=== PATIENT | female | born 1955 | race Caucasian/White ===

== ENCOUNTER 2019-06-29 05:55 | Day surgery (SDC) | payer OTHER ==
[~2019-06-29 05:55] MED LIST: LIRICA PO; NEURONTIN600 MG
== END 2019-06-29 10:30 | disposition home or self-care (01) ==
LOC: CIR.AMB 05:55
DX: M19.042 Primary osteoarthritis, left hand (principal)

== ENCOUNTER 2019-10-07 12:39 | Emergency (ER) | payer OTHER ==
[~2019-10-07] VITALS: Ht 152.4 cm; Wt 67.6 kg
[2019-10-07] MEDS ORDERED: LYRICA200 MG (12:55)
[2019-10-07] MEDS ORDERED: ZITHROMAX500 MG PO (16:30)
[2019-10-07] MEDS ORDERED: AIRBORNE EFFER1 EACH PO (16:30)
== END 2019-10-07 16:52 | disposition home or self-care (01) ==
LOC: ER 12:39
DX: J06.9 Acute upper respiratory infection, unspecified (principal); R07.89 Other chest pain; R06.02 Shortness of breath; Z03.818 Encounter for observation for suspected exposure to other biological agents ruled out

== ENCOUNTER 2019-11-18 07:46 | Outpatient (CLI) | payer OTHER ==
[~2019-11-18 07:46] MED LIST changes: +AIRBORNE EFFER1 EACH PO; +LYRICA200 MG; +ZITHROMAX500 MG PO
== END 2019-11-18 07:52 | disposition home or self-care (01) ==
LOC: RAD 07:46
PROVIDERS: ATTEND Internal Medicine Gastroenterology
DX: R51 Headache (principal); R06.02 Shortness of breath

== ENCOUNTER 2021-03-29 10:00 | Outpatient (CLI) | payer OTHER | END 2021-03-29 10:15 | disposition home or self-care (01) | LOC: PPH VACUNA 10:00 | PROVIDERS: ATTEND Emergency Medicine Pediatric Emergency Medicine | DX: Z23 Encounter for immunization (principal) ==

== ENCOUNTER 2022-01-31 09:20 | Outpatient (CLI) | payer OTHER | END 2022-01-31 09:59 | disposition home or self-care (01) | LOC: RAD 09:20 | PROVIDERS: ATTEND Orthopaedic Surgery | DX: M25.561 Pain in right knee (principal); M25.562 Pain in left knee; M25.551 Pain in right hip; M25.552 Pain in left hip ==

== ENCOUNTER 2022-02-28 08:16 | Outpatient (CLI) | payer OTHER | END 2022-02-28 08:21 | disposition home or self-care (01) | LOC: PPH VACUNA 08:16 | PROVIDERS: ATTEND Emergency Medicine Pediatric Emergency Medicine | DX: Z23 Encounter for immunization (principal) ==

== ENCOUNTER 2022-05-02 09:59 | Emergency (ER) | payer OTHER ==
[~2022-05-02] VITALS: Ht 152.4 cm; Wt 63.5 kg
[2022-05-02] MEDS ORDERED: VITAMIN D310 MCG/1 M PO (10:16)
== END 2022-05-02 13:32 | disposition home or self-care (01) ==
LOC: ER 09:59
DX: M79.662 Pain in left lower leg (principal); Z88.2 Allergy status to sulfonamides

== ENCOUNTER 2022-10-28 06:37 | Outpatient (CLI) | payer OTHER ==
[~2022-10-28 06:37] MED LIST changes: +VITAMIN D310 MCG/1 M PO
== END 2022-10-28 06:51 | disposition home or self-care (01) ==
LOC: LAB 06:37
PROVIDERS: ATTEND Orthopaedic Surgery
DX: D64.89 Other specified anemias (principal); E88.89 Other specified metabolic disorders; D68.8 Other specified coagulation defects; N39.0 Urinary tract infection, site not specified; A49.02 Methicillin resistant Staphylococcus aureus infection, unspecified site; Z76.89 Persons encountering health services in other specified circumstances; I49.9 Cardiac arrhythmia, unspecified; I10 Essential (primary) hypertension

== ENCOUNTER 2022-11-28 09:34 | Emergency (ER) | payer OTHER ==
[~2022-11-28] VITALS: Ht 152.4 cm; Wt 63.0 kg
== END 2022-11-28 15:29 | disposition home or self-care (01) ==
LOC: ER 09:34
DX: K57.30 Diverticulosis of large intestine without perforation or abscess without bleeding (principal); K57.32 Diverticulitis of large intestine without perforation or abscess without bleeding; Z88.2 Allergy status to sulfonamides

== ENCOUNTER 2023-07-24 07:04 | Day surgery (SDC) | payer OTHER ==
[2023-07-14 10:37] LABS: HEMATOCRIT 41.5 % (36.0-45.00); HEMOGLOBIN 13.7 g/dL (12.0-15.00); MEAN CELL VOLUME 88.6 fL (80.00-100.00); MEAN CORPUSCULAR HEMOGLOBIN 29.3 pg (27.00-32.0); MEAN CORPUSCULAR HGB CONC 33.1 g/dl (32.0-36.0); PLATELET COUNT 267 K/uL (150-450); RED BLOOD COUNT 4.68 M/uL (4.00-6.00); RED CELL DISTRIBUTION WIDTH 14.1 % (11.5-14.5)
[2023-07-14 10:41] LABS: PH,URINE 6.5 (5.0-8.0); URINE APPEARANCE Clear; URINE BILIRRUBIN Negative (NEGATIVE); URINE BLOOD Negative; URINE COLOR Yellow; URINE GLUCOSE Negative (NEGATIVE); URINE LEUKOCYTE Trace; URINE NITRATE Negative; URINE PROTEIN Negative (NEGATIVE); URINE UROBILINOGEN 0.2 E.U./dl
[2023-07-14 10:46] LABS: URINE BACTERIA 13.8 uL (0.0-1933); URINE EPITHELIAL CELLS 3.2 uL (0.0-38.8); URINE RBC 17.3 uL (0.0-20.8); URINE WBC 10.5 uL (0.0-23.2)
[2023-07-14 11:05] LABS: INR 0.99; PARTIAL THROMBOPLASTIN TIME 34.9 SECONDS (22.0-34.0); PROTHROMBIN TIME 10.4 SECONDS (9.0-11.5)
[2023-07-14 11:10] LABS: ALBUMIN 3.8 gm/dL (3.4-5.0); BILIRUBIN TOTAL 0.46 mg/dL (0.3-1.2); CALCIUM 9.5 mg/dL (8.5-10.1); CREATININE SERUM 0.62 mg/dL (0.55-1.02); GFR 95.16; GLOBULINA 3.2 G/DL (2.4-3.5); POTASSIUM 3.92 mEq/L (3.5-5.1)
[2023-07-24] MEDS ORDERED: BUPIVACAINE HCL/PF 0.5% 5MG/ML VIAL IJ ONE (09:00)
[2023-07-24] MEDS ORDERED: CEFAZOLIN SODIUM 1,000 MG VIAL IV ONE (09:00)
[2023-07-24] MEDS ORDERED: KETOROLAC TROMETHAMINE 30 MG VIAL IV ONE (09:00)
[2023-07-24] MEDS ORDERED: LIDOCAINE HCL/EPINEPHRINE 20 ML VIAL IJ ONE ×2 (09:00→09:56)
[2023-07-24] MEDS ORDERED: KETOROLAC TROMETHAMINE 30 MG VIAL IJ ONE (09:00)
[2023-07-24] MEDS ORDERED: CEFAZOLIN SODIUM 1,000 MG VIAL ONE (09:39)
[2023-07-24] MEDS ORDERED: KETOROLAC TROMETHAMINE 30 MG VIAL ONE (09:55)
[2023-07-24] MEDS ORDERED: BUPIVACAINE HCL/PF 0.5% 30ML ML ONE (09:56)
[2023-07-24] MEDS ORDERED: SUGAMMADEX SODIUM 200 MG/2 ML VIAL IV ONE ×2 (11:20→11:30)
== END 2023-07-24 15:20 | disposition home or self-care (01) ==
LOC: CIR.AMB 07:04
PROVIDERS: ATTEND Orthopaedic Surgery
DX: M75.121 Complete rotator cuff tear or rupture of right shoulder, not specified as traumatic (principal); M75.21 Bicipital tendinitis, right shoulder; M24.111 Other articular cartilage disorders, right shoulder; Z88.2 Allergy status to sulfonamides; Z88.1 Allergy status to other antibiotic agents; Z20.822 Contact with and (suspected) exposure to COVID-19

== ENCOUNTER 2023-09-02 07:56 | Emergency (ER) | payer OTHER ==
[~2023-09-02] VITALS: Ht 152.4 cm; Wt 59.9 kg
[2023-09-02] MEDS ORDERED: TRIAMCINOLONE ACETONIDE 40 MG/ML VIAL IM ONE (09:30)
[2023-09-02] MEDS ORDERED: ORPHENADRINE CITRATE 30 MG/ML AMPUL IM ONE (09:30)
[2023-09-02] MEDS ORDERED: FAMOtidine 20 MG TABLET PO ONE (09:30)
[2023-09-02] MEDS ORDERED: TIZANIDINE HCL2 M1 PO (09:31)
[2023-09-02] MEDS ORDERED: TYLENOL ARTHRI650 MG PO (09:31)
[2023-09-02] MEDS ORDERED: FAMOTIDINE/PF 20 MG/2 ML VIAL IV PUSH ONE (09:45)
== END 2023-09-02 10:27 | disposition home or self-care (01) ==
LOC: ER 07:57
DX: M54.32 Sciatica, left side (principal); M54.50 Low back pain, unspecified; Z88.2 Allergy status to sulfonamides
CPT/HCPCS: 96365; 96372; 99282; J2360; J3301; J3490

== ENCOUNTER 2024-03-02 07:00 | Outpatient (CLI) | payer OTHER ==
[~2024-03-02 07:00] MED LIST changes: +TIZANIDINE HCL2 M1 PO; +TYLENOL ARTHRI650 MG PO
[2024-03-02 07:57] LABS: HEMATOCRIT 41.3 % (36.0-45.00); HEMOGLOBIN 14.1 g/dL (12.0-15.00); MEAN CORPUSCULAR HGB CONC 34.1 g/dl (32.0-36.0); PLATELET COUNT 246 K/uL (150-450); RED CELL DISTRIBUTION WIDTH 14.3 % (11.5-14.5)
[2024-03-02 08:18] LABS: URINE APPEARANCE Clear; URINE BILIRRUBIN Negative (NEGATIVE); URINE BLOOD Negative; URINE COLOR Yellow; URINE GLUCOSE Negative (NEGATIVE); URINE KETONE Negative (NEGATIVE); URINE LEUKOCYTE Trace; URINE NITRATE Negative; URINE PROTEIN Negative (NEGATIVE); URINE UROBILINOGEN 0.2 E.U./dl
[2024-03-02 08:22] LABS: URINE BACTERIA 15.1 uL (0.0-1933); URINE EPITHELIAL CELLS 7.1 uL (0.0-38.8); URINE RBC 13.5 uL (0.0-20.8); URINE WBC 11.1 uL (0.0-23.2)
[2024-03-02 08:44] LABS: ALBUMIN 3.9 gm/dL (3.4-5.0); BILIRUBIN TOTAL 0.45 mg/dL (0.3-1.2); CALCIUM 9.8 mg/dL (8.5-10.1); CREATININE SERUM 0.61 mg/dL (0.55-1.02); GFR 96.96; GLOBULINA 3.5 G/DL (2.4-3.5); POTASSIUM 3.94 mEq/L (3.5-5.1); TOTAL PROTEIN 7.4 gm/dL (6.4-8.2)
[2024-03-02 08:45] LABS: INR 1.04; PARTIAL THROMBOPLASTIN TIME 36.9 SECONDS (22.0-34.0); PROTHROMBIN TIME 11.3 SECONDS (9.0-11.5)
[2024-03-02 09:08] LABS: COL EPI 86 SECONDS (82-175)
== END 2024-03-02 07:07 | disposition home or self-care (01) ==
LOC: LAB 07:00
PROVIDERS: ATTEND Orthopaedic Surgery
DX: D64.9 Anemia, unspecified (principal); E88.89 Other specified metabolic disorders; D68.8 Other specified coagulation defects; N39.0 Urinary tract infection, site not specified; Z22.322 Carrier or suspected carrier of Methicillin resistant Staphylococcus aureus; Z76.89 Persons encountering health services in other specified circumstances; I10 Essential (primary) hypertension

== ENCOUNTER 2024-05-05 07:09 | Emergency (ER) | payer OTHER ==
[~2024-05-05] VITALS: Ht 152.4 cm; Wt 60.8 kg
[2024-05-05] MEDS ORDERED: ORPHENADRINE CITRATE 30 MG/ML AMPUL IV ONE (08:30)
[2024-05-05] MEDS ORDERED: MORPHINE SULFATE 2 MG/ML CARTRIDGE IV ONE (08:30)
[2024-05-05] MEDS ORDERED: MEDROLPACK PO (12:14)
== END 2024-05-05 13:39 | disposition home or self-care (01) ==
LOC: ER 07:11
DX: M79.605 Pain in left leg (principal); M25.552 Pain in left hip; Z88.2 Allergy status to sulfonamides
CPT/HCPCS: 93971; 96365; 99284; J2270

== ENCOUNTER 2024-05-13 07:59 | Emergency (ER) | payer OTHER ==
[~2024-05-13] VITALS: Ht 152.4 cm; Wt 59.9 kg
[~2024-05-13 07:59] MED LIST changes: +MEDROLPACK PO
[2024-05-13 08:06] VITALS: BP 165/90; O2SAT 97
[2024-05-13] MEDS ORDERED: MECLIZINE HCL 25 MG TABLET PO ONE (09:00)
[2024-05-13] MEDS ORDERED: ORPHENADRINE CITRATE 30 MG/ML AMPUL IM ONE (09:00)
[2024-05-13] MEDS ORDERED: KETOROLAC TROMETHAMINE 60 MG VIAL IM ONE (09:00)
[2024-05-13] MEDS ORDERED: KETO10TA2 PO (11:10)
[2024-05-13] MEDS ORDERED: ANTIVERT25 M2 PO (11:10)
[2024-05-13] MEDS ORDERED: NEURONTIN300 MG PO (11:10)
== END 2024-05-13 12:20 | disposition home or self-care (01) ==
LOC: ER 07:59
DX: M79.605 Pain in left leg (principal); G35 Multiple sclerosis; Z88.2 Allergy status to sulfonamides; M51.26 Other intervertebral disc displacement, lumbar region
CPT/HCPCS: 72131; 96372; 99284; J1885; J2360

== ENCOUNTER → 2024-06-24 | Emergency (ER) | payer OTHER ==
[~2024-06-24] VITALS: Ht 152.4 cm; Wt 60.8 kg
[~2024-06-24] MED LIST changes: +ANTIVERT25 M2 PO; +KETO10TA2 PO; +NEURONTIN300 MG PO
== END | disposition home or self-care (01) ==
LOC: ER 13:25
DX: S09.8XXA Other specified injuries of head, initial encounter (principal); W19.XXXA Unspecified fall, initial encounter; Y93.89 Activity, other specified; Y92.89 Other specified places as the place of occurrence of the external cause; Y99.8 Other external cause status; Z88.2 Allergy status to sulfonamides

== ENCOUNTER 2025-04-07 09:00 | Day surgery (SDC) | payer OTHER ==
[2025-03-30 09:06] LABS: BASO % 0.6 % (0.1-1.2); EOS # 0.21 (0.04-0.54); EOS % 3.0 % (0.7-7.0); LYMPH # 1.85 (1.18-3.74); LYMPH % 26.8 % (19.3-53.1); MEAN PLATELET VOLUME 11.10 fl (9.4-12.4); MONO # 0.85 (0.24-0.82); NEUT # 3.94 (1.56-6.13); NEUT % 57.0 % (34.0-71.1); RED CELL DISTRIBUTION WIDTH 13.8 % (11.6-14.4)
[2025-03-30 09:07] VITALS: BP 150/80
[2025-03-30 09:11] LABS: MONO % 12.3 % (4.7-12.5)
[2025-03-30 09:12] LABS: URINE APPEARANCE Clear; URINE BILIRRUBIN Negative (NEGATIVE); URINE BLOOD Trace; URINE COLOR Yellow; URINE GLUCOSE Negative (NEGATIVE); URINE KETONE Negative (NEGATIVE); URINE LEUKOCYTE Trace; URINE NITRATE Negative; URINE PROTEIN Negative (NEGATIVE); URINE UROBILINOGEN 0.2 E.U./dl
[2025-03-30 09:17] LABS: URINE BACTERIA 19.2 uL (0.0-1933); URINE EPITHELIAL CELLS 3.0 uL (0.0-38.8); URINE RBC 16.4 uL (0.0-20.8); URINE WBC 4.6 uL (0.0-23.2)
[2025-03-30 09:33] LABS: URINE CAST 0.00 uL (0.0-1.40)
[2025-03-30 09:34] LABS: INR 1.04
[2025-03-30 10:06] LABS: ALT/SGPT 20.0 U/L (12-78); AST/SGOT 18.0 U/L (15-37); BILIRUBIN TOTAL 0.57 mg/dL (0.3-1.2); BUN CREA RATIO 19.0 (7.0-25.0); CREATININE SERUM 0.64 mg/dL (0.55-1.02); GFR 91.47; GLOBULINA 2.9 G/DL (2.4-3.5); GLUCOSE FASTING 103.0 mg/dL (65-100); OSMOLALITY SERUM 287.0 MOSM/KG (275-295)
[~2025-04-07] VITALS: Ht 152.4 cm; Wt 63.5 kg
[~2025-04-07 09:00] MED LIST changes: +SULINDAC150 MG PO
[2025-04-07] MEDS ORDERED: BUPIVACAINE HCL/MPF 0.5% 30ML VIAL ONE (11:18)
[2025-04-07] MEDS ORDERED: KETOROLAC TROMETHAMINE 30 MG VIAL IV ONE (13:45)
[2025-04-07] MEDS ORDERED: SUGAMMADEX SODIUM 200 MG/2 ML VIAL IV ONE (13:45)
== END 2025-04-07 16:35 | disposition home or self-care (01) ==
LOC: CIR.AMB 09:00
PROVIDERS: ATTEND Orthopaedic Surgery
DX: M75.121 Complete rotator cuff tear or rupture of right shoulder, not specified as traumatic (principal); M24.111 Other articular cartilage disorders, right shoulder; M75.21 Bicipital tendinitis, right shoulder